=== PATIENT | female | born 1955 | race Caucasian/White ===

== ENCOUNTER → 2021-04-29 | Outpatient (CLI) | payer OTHER ==
--- NOTE | 2021-05-01 18:10 | RAD ---
DATE: 04/29/2021 EXAM: MAMMO SANJAY SCREENING BILATERAL HISTORY: Screening COMPARISON: Multiple prior exams dating back to 04/04/2012 This study was interpreted with the benefit of Computerized Aided Detection (CAD). Breast Density: SCATTERED The breast parenchyma shows scattered fibroglandular densities. Breast parenchyma level B. FINDINGS: There is a 5 mm circumscribed nodule in the left breast at 9-10:00 posterior depth, likely a lymph node. This is best seen on MLO sanjay slice 57/80 and CC sanjay 5 40/77. No other mass, calcifications, or architectural distortion. IMPRESSION: 5 mm mass in the posterior inner left breast, possibly a lymph node. Recommend ultrasound further evaluate. BI-RADS CATEGORY: 0 INCOMPLETE: NEEDS ADDITIONAL IMAGING EVALUATION AND/OR PRIOR MAMMOGRAMS FOR COMPARISON. RECOMMENDED FOLLOW-UP: ADD ADDITIONAL IMAGING PQRS compliance statement: Patient information was entered into a reminder system with a target due date for the next mammogram. Mammography is a sensitive method for finding small breast cancers, but it does not detect them all and is not a substitute for careful clinical examination. A negative mammogram does not negate a clinically suspicious finding and should not result in delay in biopsying a clinically suspicious abnormality. "Our facility is accredited by the [employer] Mammography [employer]."
== END ==
LOC: MAMMO 08:40
PROVIDERS: ATTEND Nurse Practitioner Family
DX: Z12.31 Encounter for screening mammogram for malignant neoplasm of breast (principal)
CPT/HCPCS: 77063; 77067

== ENCOUNTER → 2021-06-01 | Outpatient (CLI) | payer OTHER ==
--- NOTE | 2021-06-01 13:25 | RAD ---
EXAM: Left breast sonogram. HISTORY: 66-year-old female presents for evaluation of a nodule within the posterior medial left nuvia st demonstrated on a mammogram dated 04/29/2021. TECHNIQUE: Sonographic imaging of the left breast targeted to sites of mammographic nodularity was pe rformed. COMPARISON: Mammograms dated 04/29/2021, 02/04/2016 and 02/27/2014. FINDINGS: There is no sonographic correlate for the nodule concern on the recent screening mammogram. There is no suspicious finding in this location. IMPRESSION: 1. No suspicious finding at the site of nodularity within the posterior medial left breast demonstrat ed on the recent mammogram. Note is made that this mammographic finding appears to be stable compared to prior mammograms dated 2 02/27/2014, allowing for differences in imaging modality. The interval st ability and mammographic appearance favors a benign etiology such as a sonographically occult intrama mmary lymph node. 2. BI-RADS Category 3: Probably benign finding(s). Short term follow up with a diagnostic left breast mammogram including 3D tomosynthesis images in 6 month is recommended to confirm mammographic stabil ity. Electronically signed by: Josefina Benson MD (06/01/2021 1:22 PM) [id number]
== END ==
LOC: US 12:40
PROVIDERS: ATTEND Nurse Practitioner Family
DX: R92.8 Other abnormal and inconclusive findings on diagnostic imaging of breast (principal)
CPT/HCPCS: 76641

== ENCOUNTER → 2021-11-26 | Outpatient (CLI) | payer OTHER ==
--- NOTE | 2021-11-26 13:44 | RAD ---
EXAM: Left breast diagnostic mammogram with tomosynthesis. HISTORY: 66-year-old female presents for evaluation of findings within the left breast demonstrated o n a mammogram dated 04/29/2021. The patient refuses sonography. TECHNIQUE: Full-field digital craniocaudal and mediolateral oblique 2D and 3D tomosynthesis images of the left breast are obtained for evaluation. Computer aided detection was applied. COMPARISON: 04/29/2021, 02/04/2016 BREAST PARENCHYMAL DENSITY: Level A - Mostly fat. FINDINGS: There is no new suspicious mass, microcalcification or region of architectural distortion. There is a stable small circumscribed nodular density within the posterior 9:00 position of the left breast. The greater than 5 year course of stability favors benignity. There are additional stable are as of nodularity within the lateral left breast which are also stable, the appearance of which favors intramammary lymph nodes. There is no suspicious calcification or architectural distortion. IMPRESSION: 1. Stable areas of benign-appearing nodularity within the left breast, described above. The patient r efused sonographic assessment of these findings. However, the 5 year course of stability and mammogra phic appearance favors benignity. 2. BI-RADS Category 2: Benign finding(s). The patient will be due for bilateral mammography in 5 ubaldo hs according to a previously established mammography interval. If your mammogram demonstrates that you have dense breast tissue, which could hide abnormalities, and if you have other risk factors for breast cancer that have been identified, you might benefit from s upplemental screening tests that may be suggested by your ordering physician. Dense breast tissue, i n and of itself, is a relatively common condition. This information is not provided to cause undue c oncern, but rather to raise your awareness and to promote discussion with your physician regarding th e presence of other risk factors, in addition to dense breast tissue. A report of your mammography re sults will be sent to you and your physician. You should contact your physician if you have any ques tions or concerns regarding this report. Mammography is a sensitive method for finding small breast cancers, but it does not detect them all a nd is not a substitute for careful clinical examination. A negative mammogram does not negate a clin ically suspicious finding and should not result in delay in biopsying a clinically suspicious abnorma lity. PQRS compliance statement - Patient information was entered into a reminder system with a target due date for the next mammogram. "Our facility is accredited by the [employer] Mammography [employer]." Electronically signed by: Josefina Benson MD (11/26/2021 1:41 PM) [id number]
== END ==
LOC: MAMMO 12:57
PROVIDERS: ATTEND Nurse Practitioner Family
DX: R92.8 Other abnormal and inconclusive findings on diagnostic imaging of breast (principal)
CPT/HCPCS: 77065; G0279; 77061